=== PATIENT | female | born 1990 | race American Indian/Alaskan Native ===

== ENCOUNTER 2017-04-12 13:28 | Emergency (ER) | payer SELFPAY ==
[2017-04-12 13:53] VITALS: BP 136/89
== END 2017-04-12 14:02 | disposition left against medical advice (07) ==
LOC: ED 13:28
DX: G40.909 Epilepsy, unspecified, not intractable, without status epilepticus (principal); S50.311A Abrasion of right elbow, initial encounter; M54.9 Dorsalgia, unspecified; V47.5XXA Car driver injured in collision with fixed or stationary object in traffic accident, initial encounter; Y93.89 Activity, other specified; Y99.9 Unspecified external cause status; Y92.410 Unspecified street and highway as the place of occurrence of the external cause; Z53.21 Procedure and treatment not carried out due to patient leaving prior to being seen by health care provider